=== PATIENT | female | born 1950 | race Caucasian/White ===

== ENCOUNTER → 2016-06-03 | Day surgery (SDC) | payer BC | LOC: RAD 13:27 | PROVIDERS: ATTEND Physician Assistant | PROC: BP09ZZZ Plain Radiography of Left Shoulder (ICD-10-PCS; principal; 2016-06-03) | DX: M25.512 Pain in left shoulder (principal) | CPT/HCPCS: 73222; 73040; 77002; A9576 ==

== ENCOUNTER 2016-07-15 07:51 | Day surgery (SDC) | payer BC ==
[~2016-07-15 07:51] MED LIST: CEFAZOLIN 1 GM/D5W RTU 1 GM/50 ML RTUPB IV PRN; CEFAZOLIN SODIUM 1 GM in DEXTROSE 5%-WATER 50 ML IV PRN; RINGERS SOLUTION,LACTATED 1,000 ML IV PRN
[2016-07-15] MEDS ORDERED: LIDOCAINE 2% INJ (20 MG/ML) 20 ML MDV ONE (08:00)
[2016-07-15] MEDS ORDERED: BUPIVACAINE HCL 0.5 % INJ/PF 30 ML SDV ONE (08:00)
[2016-07-15] MEDS ORDERED: FENTANYL CITRATE INJ/PF 100 MCG/2 ML AMPUL ONE (08:42)
[2016-07-15] MEDS ORDERED: LIDOCAINE 2% INJ-PF (20 MG/ML) 10 ML AMPUL ONE (08:42)
[2016-07-15] MEDS ORDERED: MIDAZOLAM 2 MG/2 ML INJ ONE (08:42)
[2016-07-15] MEDS ORDERED: PROPOFOL INJ 200 MG/20 ML VIAL IV ONE (08:43)
[2016-07-15] MEDS ORDERED: DIPHENHYDRAMINE HCL 50 MG/ML VIAL ONE (08:51)
--- NOTE | 2016-07-15 11:19 | [facility] OPERATIVE REPORT E ---
[facility] Operative Report NAME: ANH FLANAGAN AGE: 66Y DATE OF SURGERY: 07/15/2016 ROOM: PREOPERATIVE DIAGNOSIS: HALLUX ABDUCTOVALGUS DEFORMITY RIGHT FOOT. POSTOPERATIVE DIAGNOSIS: HALLUX ABDUCTOVALGUS DEFORMITY RIGHT FOOT. OPERATION: Darrell osteotomy, first metatarsal head, right foot. Capsulorrhaphy first metatarsophalangeal joint, right foot. SURGEON: SIMEON ALLEN D.P.M. INTRAOPERATIVE FINDINGS: Intraoperative findings indicated severe hypertrophy of the medial eminence of the head of the first metatarsal. There were slight degenerative changes noticed in the joint. The articular facet of the head of the first metatarsal and the base of the proximal phalanx were relatively within normal limits. Intraoperative findings were confirmed clinically and radiographically. PROCEDURE: With the patient lying in the dorsal recumbent position, the right foot and leg were prepped and draped in the usual standard sterile orthopedic manner after the local anesthesia was administered which was a total ankle block. After the anesthetic effect was accomplished, the right leg was elevated for approximately 2 minutes' of time and the right ankle pneumatic tourniquet was inflated up to 250 mmHg after the blood was exsanguinated from the right foot. The right leg was brought to the level of the table. Attention was directed right over the first metatarsophalangeal joint. A curvilinear incision was placed right over the joint. The initial incision was deepened. The superficial and deep subcutaneous tissues were dissected via blunt and sharp dissection. This dissection was carried until the capsular structures were brought into the surgical field. By this time, all bleeders were ligated and all vital structures were identified and protected from surgical trauma. Next, the L inverted capsulotomy was performed right over the joint and the long arm of the capsulotomy was medial and adjacent to extensor hallucis longus tendon and the shorter arm ran right over the joint in a medial inferior direction. Capsular and periosteal structures were dissected of bone and the head of the first metatarsal was brought into the surgical field. The hypertrophic portion of the medial eminence of the head of the first metatarsal was resected and the head was remodeled to a more normal anatomical configuration. At this point, the osteotomy was mapped on the bone and was performed in the sagittal plan. This was a gqagdeg-giy-kytahdg osteotomy, it was a chevron type of osteotomy with the apical portion facing the joint and the arms of the chevron being angulated about 45 degrees to the long axis of the first metatarsal. After the osteotomy was completed, the head was shifted lateral brito and compacted from the distal shaft and with this new anatomical alignment of the first metatarsal head, the osteotomy was externally fixated with 0.062 K-wire. The direction of the wire was from medial proximal to lateral distal direction. The wire crossed the osteotomy and impacted it. Precautions were taken for the K-wire not to be protruding into the joint. The evaluation of the osteotomy was performed and the positioning of the K-wire was very satisfactory and this was documented via intraoperative x-rays. At this point, the protruding wedge of bone over the medial distal aspect of the first metatarsal was resected. The ankle pneumatic tourniquet was deflated and circulation to the right foot returned to normal immediately as the normal digital color and temperature became apparent. The surgical site was irrigated with copious amounts of sterile saline solution. The capsulorrhaphy was performed next to remove the redundant portion of capsule created after the correction of the deformity. The subcutaneous tissues from deep to superficial were closed with 3-0 Vicryl and skin edges were repositioned and closed with 4-0 nylon using continuous interlocked stitch. A Betadine compression dressing was applied around the right foot, followed with an Travis bandage and a surgical shoe. This patient tolerated the procedures well and left the operating room with stable vital signs and in good condition. The patient was taken to the recovery room alert, conscious and oriented. There are no permanent disabilities anticipated at this time. DICTATING PHYSICIAN: SIMEON ALLEN D.P.M. [id number] PHY#: [id number] ID: [id number] JOB#: [id number] ACCT: [id number] cc:SIMEON ALLEN D.P.M. > FERN
== END 2016-07-15 11:47 | disposition home or self-care (01) ==
LOC: SC 07:51
PROVIDERS: ATTEND Podiatrist Foot & Ankle Surgery
PROC: 0SQM0ZZ Repair Right Metatarsal-Phalangeal Joint, Open Approach (ICD-10-PCS; 2016-07-15)
PROC: 0QBN0ZZ Excision of Right Metatarsal, Open Approach (ICD-10-PCS; principal; 2016-07-15 08:45)
DX: M20.11 Hallux valgus (acquired), right foot (principal); M06.9 Rheumatoid arthritis, unspecified; F32.9 Major depressive disorder, single episode, unspecified; E11.9 Type 2 diabetes mellitus without complications; I10 Essential (primary) hypertension; E66.9 Obesity, unspecified; Z79.84 Long term (current) use of oral hypoglycemic drugs; Z79.82 Long term (current) use of aspirin; Z79.899 Other long term (current) drug therapy
CPT/HCPCS: 28296; 28899; 82962; 73620; C1713; J2250; J3490 ×2; J0690; J1200; J3010; J2704; 01480

== ENCOUNTER 2016-08-18 08:11 | Day surgery (SDC) | payer BC ==
[~2016-08-18 08:11] MED LIST changes: +BUPIVACAINE HCL 0.75% INJ/PF (7.5 MG/1 ML) 10 ML SDV OD PRN; -CEFAZOLIN 1 GM/D5W RTU 1 GM/50 ML RTUPB IV PRN; -CEFAZOLIN SODIUM 1 GM in DEXTROSE 5%-WATER 50 ML IV PRN; +KETOROLAC TROMETHAMINE 0.45% 4 DROP/0.4 ML DROPERETTE OD PRN; +LIDOCAINE 4% INJ/PF (40 MG/ML) 5 ML AMPUL OD PRN; +MIDAZOLAM 2 MG/2 ML INJ ONE; -RINGERS SOLUTION,LACTATED 1,000 ML IV PRN
[2016-08-18] MEDS: TROPICAMIDE 1% OPH SOLN 3 ML OD PRN ×3 (09:05→09:25)
[2016-08-18] MEDS: CYCLOPENTOLATE 0.2%/PHENYLEPHRINE 1% OPH SOLN 2 ML OD PRN ×3 (09:05→09:25)
[2016-08-18] MEDS: BESIFLOXACIN HCL 0.6% OPH SUSP 5 ML BOTTLE OD PRN ×2 (09:05→09:15)
[2016-08-18] MEDS: TETRACAINE HCL 0.5% OPH SOLN 0.6 ML DROPERETTE OD PRN ×2 (09:06→09:25)
[2016-08-18] MEDS ORDERED: CHONDR SU A NA/HYALUR INTRAOC KIT (SURGICARE) ONE (09:10)
[2016-08-18] MEDS ORDERED: EPINEPHRINE INJ/PF 1 MG/1 ML AMPULE ONE (09:10)
[2016-08-18] MEDS ORDERED: MIDAZOLAM 2 MG/2 ML INJ ONE (09:52)
--- NOTE | 2016-08-18 10:38 | [facility] OPERATIVE REPORT E ---
[facility] Operative Report NAME: ANH FLANAGAN AGE: 66Y DATE OF SURGERY: 08/18/2016 ROOM: PREOPERATIVE DIAGNOSIS: Cataract, right eye. POSTOPERATIVE DIAGNOSIS: Cataract, right eye. PROCEDURE PERFORMED: Phacoemulsification with posterior chamber intraocular lens, right eye. SURGEON: Ronit Costello MD ANESTHESIA: Topical with MAC. INDICATIONS FOR SURGERY: Difficulty driving at night with glare. Best corrected visual acuity 20/60. PROCEDURE: The patient was brought to the operating room and placed on the operative table. Following tetracaine drops, topical anesthesia was administered. This consisted of instrument wipe pledgets soaked in a solution of 4% Xylocaine mixed with 0.75% Marcaine in a 1:2 ratio. A 2 x 1 cm pledget was placed in the superior fornix. A 1 x 1 cm pledget was placed in the inferior fornix. The eye was patched shut for 5 minutes. The patch was removed. The eye was sterilely prepped and draped in the usual manner. Lid speculum was placed in the eye. The pledgets were removed. 4-0 black silk sutures were placed around the superior and the inferior rectus muscles to be used as traction. A conjunctival peritomy was made at the 10 o'clock position. Hemostasis was obtained with bipolar cautery. A posterior limbal groove was created using a crescent knife and dissected anteriorly towards the cornea. A sharp point blade was used to create a paracentesis site at the 2 o'clock position. A 2.4 mm keratome was used to enter the anterior chamber through the groove. Viscoelastic was injected into the anterior chamber. An anterior capsulotomy was performed using Utrata forceps in a capsulorrhexis fashion. Hydrodissection and hydrodelineation were performed. Phacoemulsification was performed in avhqid-uoa-atrczde technique. Total phaco time 32 seconds. Following this, the I/A unit was used to remove residual cortex. Viscoelastic was injected into the capsular bag. Intraocular lens model SN60WF, 21.5 diopters, serial number [id number] was placed in the capsular bag. The I/A unit was used to remove residual viscoelastic. The wound was seen to be watertight under high and low pressure, and no sutures were placed. The intraocular lens was well centered. The pressure was adjusted in the eye to normal pressure. The 4-0 black silk sutures and lid speculum were removed. The eye was shielded after Besivance drops were placed. The patient tolerated the procedure well and was sent to the recovery room in good condition. DICTATING PHYSICIAN: RONIT COSTELLO M.D. [id number] PHY#: [id number] ID: [id number] JOB#: [id number] ACCT: [id number] cc:RONIT COSTELLO M.D. >
--- NOTE | 2016-08-18 10:39 | [facility] DISCHARGE SUMMARY E ---
[facility] Discharge Summary NAME: ANH FLANAGAN AGE: 66Y ADMITTED: 08/18/2016 DISCHARGED: 08/18/2016 PREOPERATIVE DIAGNOSIS: Cataract, right eye. POSTOPERATIVE DIAGNOSIS: Cataract, right eye. HOSPITAL COURSE: The patient is a 66-year-old lady who underwent uneventful cataract extraction with intraocular lens implant, right eye, on 08/18/2016. She will be discharged to home. She was instructed to resume preoperative medications, take Tylenol as needed for discomfort, to keep her eye shielded, to use Besivance, Durezol, and Ilevro at 3 p.m. and 8 p.m., and to followup in my office in 1 day. DICTATING PHYSICIAN: TRUE COSTELLO M.D. [id number] PHY#: [id number] ID: [id number] JOB#: [id number] ACCT: [id number] cc:TRUE COSTELLO M.D. >
== END 2016-08-18 10:58 | disposition home or self-care (01) ==
LOC: SC 08:11
PROVIDERS: ATTEND Ophthalmology
PROC: 08RJ3JZ Replacement of Right Lens with Synthetic Substitute, Percutaneous Approach (ICD-10-PCS; principal; 2016-08-18 09:30)
DX: H25.813 Combined forms of age-related cataract, bilateral (principal); E11.9 Type 2 diabetes mellitus without complications; I10 Essential (primary) hypertension; K21.9 Gastro-esophageal reflux disease without esophagitis; I49.9 Cardiac arrhythmia, unspecified; Z79.84 Long term (current) use of oral hypoglycemic drugs; Z79.899 Other long term (current) drug therapy; Z88.2 Allergy status to sulfonamides; Z79.82 Long term (current) use of aspirin; Z86.14 Personal history of Methicillin resistant Staphylococcus aureus infection
CPT/HCPCS: 66984; 82962; V2632; J2250; J3490 ×3; J0171; 142

== ENCOUNTER 2016-09-08 08:50 | Day surgery (SDC) | payer BC ==
[~2016-09-08 08:50] MED LIST changes: -BUPIVACAINE HCL 0.75% INJ/PF (7.5 MG/1 ML) 10 ML SDV OD PRN; +BUPIVACAINE HCL 0.75% INJ/PF (7.5 MG/1 ML) 10 ML SDV OS PRN; -KETOROLAC TROMETHAMINE 0.45% 4 DROP/0.4 ML DROPERETTE OD PRN; +KETOROLAC TROMETHAMINE 0.45% 4 DROP/0.4 ML DROPERETTE OS PRN; -LIDOCAINE 4% INJ/PF (40 MG/ML) 5 ML AMPUL OD PRN; +LIDOCAINE 4% INJ/PF (40 MG/ML) 5 ML AMPUL OS PRN
[2016-09-08] MEDS: TROPICAMIDE 1% OPH SOLN 3 ML OS PRN ×3 (09:20→09:41)
[2016-09-08] MEDS: CYCLOPENTOLATE 0.2%/PHENYLEPHRINE 1% OPH SOLN 2 ML OS PRN ×3 (09:20→09:41)
[2016-09-08] MEDS: BESIFLOXACIN HCL 0.6% OPH SUSP 5 ML BOTTLE OS PRN ×4 (09:21→10:31)
[2016-09-08] MEDS: TETRACAINE HCL 0.5% OPH SOLN 0.6 ML DROPERETTE OS PRN ×2 (09:22→09:50)
[2016-09-08] MEDS ORDERED: CHONDR SU A NA/HYALUR INTRAOC KIT (SURGICARE) ONE (09:40)
[2016-09-08] MEDS ORDERED: EPINEPHRINE INJ/PF 1 MG/1 ML AMPULE ONE (09:40)
--- NOTE | 2016-09-08 10:50 | [facility] OPERATIVE REPORT E ---
[facility] Operative Report NAME: ANH FLANAGAN AGE: 66Y DATE OF SURGERY: 09/08/2016 ROOM: [facility] [place] Operative Report PREOPERATIVE DIAGNOSIS: CATARACT, LEFT EYE. POSTOPERATIVE DIAGNOSIS: CATARACT, LEFT EYE. PROCEDURE PERFORMED: PHACOEMULSIFICATION WITH POSTERIOR CHAMBER INTRAOCULAR LENS, LEFT EYE. SURGEON: TRUE COSTELLO MD ANESTHESIA: TOPICAL WITH MAC. INDICATIONS FOR SURGERY: Difficulty reading small print. Best corrected visual acuity 20/40. PROCEDURE: The patient was brought to the Operating Room and placed on the operative table. Following tetracaine drops, topical anesthesia was administered. This consisted of instrument wipe pledgets soaked in a solution of 4% Xylocaine mixed with 0.75% Marcaine in a 1:2 ratio. A 2 x 1 cm pledget was placed in the superior fornix. A 1 x 1 cm pledget was placed in the inferior fornix. The eye was patched shut for 5 minutes. The patch was removed. The eye was sterilely prepped and draped in the usual manner. Lid speculum was placed in the eye. The pledgets were removed. 4-0 black silk sutures were placed around the superior and the inferior rectus muscles to be used as traction. A conjunctival peritomy was made at the 10 o'clock position. Hemostasis was obtained with bipolar cautery. A posterior limbal groove was created using a crescent knife and dissected anteriorly towards the cornea. A sharp point blade was used to create a paracentesis site at the 2 o'clock position. A 2.4 mm keratome was used to enter the anterior chamber through the groove. Viscoelastic was injected into the anterior chamber. An anterior capsulotomy was performed using Utrata forceps in a capsulorrhexis fashion. Hydrodissection and hydrodelineation were performed. Phacoemulsification was performed in dotdtn-jll-kazgrnr technique. A total of 44 seconds phaco time was used. Following this, the I/A unit was used to remove residual cortex. Viscoelastic was injected into the capsular bag. Intraocular lens model SN60WF, 21.5 diopters, serial number [id number] was placed in the capsular bag. The I/A unit was used to remove residual viscoelastic. The wound was seen to be watertight under high and low pressure, and no sutures were placed. The intraocular lens was well centered. The pressure was adjusted in the eye to normal pressure. The 4-0 black silk sutures and lid speculum were removed. The eye was shielded after Besivance drops were placed. The patient tolerated the procedure well and was sent to the Recovery Room in good condition. DICTATING PHYSICIAN: TRUE COSTELLO M.D. DICTATING PHYSICIAN: TRUE COSTELLO M.D. [id number] PHY#: [id number] ID: [id number] JOB#: [id number] ACCT: [id number] cc:TRUE COSTELLO M.D. >
--- NOTE | 2016-09-08 10:51 | [facility] DISCHARGE SUMMARY E ---
[facility] Discharge Summary NAME: ANH FLANAGAN AGE: 66Y ADMITTED: 09/08/2016 DISCHARGED: 09/08/2016 FINAL DIAGNOSIS: Cataract, left eye. HOSPITAL COURSE: The patient is a 66-year-old lady who underwent uneventful cataract extraction with intraocular lens implant, left eye, on 09/08/16. DISPOSITION: The patient was discharged to home. DISCHARGE INSTRUCTIONS: She is instructed to resume preoperative medications, take Tylenol as needed for discomfort, to keep her eye shielded, to use Besivance, Durezol, and Ilevro at 3 p.m. and 8 p.m., and to follow up in my office in 1 day. DICTATING PHYSICIAN: TRUE COSTELOL M.D. [id number] PHY#: [id number] ID: [id number] JOB#: [id number] ACCT: [id number] cc:TRUE COSTELLO M.D. >
== END 2016-09-08 11:03 | disposition home or self-care (01) ==
LOC: SC 08:50
PROVIDERS: ATTEND Ophthalmology
PROC: 08RK3JZ Replacement of Left Lens with Synthetic Substitute, Percutaneous Approach (ICD-10-PCS; principal; 2016-09-08 10:00)
DX: H25.812 Combined forms of age-related cataract, left eye (principal); Z96.1 Presence of intraocular lens; I10 Essential (primary) hypertension; M19.90 Unspecified osteoarthritis, unspecified site; D64.9 Anemia, unspecified; K21.9 Gastro-esophageal reflux disease without esophagitis; I49.9 Cardiac arrhythmia, unspecified; Z79.82 Long term (current) use of aspirin; Z79.899 Other long term (current) drug therapy; Z88.2 Allergy status to sulfonamides; Z88.1 Allergy status to other antibiotic agents; E11.9 Type 2 diabetes mellitus without complications; Z79.84 Long term (current) use of oral hypoglycemic drugs
CPT/HCPCS: 66984; 82962; V2632; J2250; J3490 ×3; J0171

== ENCOUNTER → 2016-09-30 | Outpatient (CLI) | payer BC ==
[2016-09-30 11:55] LABS: HEMATOCRIT 37.6 % (36.0-47.0); HEMOGLOBIN 12.4 g/dL (12.0-15.5); HGB HCT DIFFERENCE -0.4; MEAN CORPUSCULAR HEMOGLOBIN 30.8 pg (27.0-33.4); MEAN CORPUSCULAR HGB CONC 33.1 g/dL (32.0-36.0); MEAN CORPUSCULAR VOLUME 93 fl (80-97); RED BLOOD COUNT 4.04 10^6/uL (3.72-5.28); RED CELL DISTRIBUTION WIDTH 13.6 % (11.5-14.0); WHITE BLOOD COUNT 7.5 10^3/uL (4.0-10.5)
[2016-09-30 12:14] LABS: ALANINE AMINOTRANSFERASE 38 U/L (9-52); ALBUMIN 4.1 g/dL (3.5-5.0); ALKALINE PHOSPHATASE 55 U/L (38-126); ANION GAP 15 (5-19); ASPARTATE AMINO TRANSFERASE 30 U/L (14-36); BILIRUBIN,DIRECT 0.3 mg/dL (0.0-0.4); BILIRUBIN,TOTAL 0.4 mg/dL (0.2-1.3); BLOOD UREA NITROGEN 16 mg/dL (7-20); CARBON DIOXIDE 27 mmol/L (22-30); CHLORIDE 99 mmol/L (98-107); CHOLESTEROL 103.45 mg/dL (0-200); Direct HDL 40 mg/dL (>40); GLUCOSE 88 mg/dL (75-110); MAGNESIUM 1.6 mg/dL (1.6-2.3); POTASSIUM 4.7 mmol/L (3.6-5.0); SODIUM 141.1 mmol/L (137-145); TRIGLYCERIDES 152 mg/dL (<150)
[2016-09-30 12:26] LABS: DIRECT LDL 44 mg/dL (<100)
[2016-09-30 12:30] LABS: VLDL CHOLESTEROL 30.4 mg/dL (10-31)
== END ==
LOC: OD 11:03
PROVIDERS: ATTEND Internal Medicine Cardiovascular Disease
DX: E78.2 Mixed hyperlipidemia (principal); D64.9 Anemia, unspecified; Z79.899 Other long term (current) drug therapy
CPT/HCPCS: 36415; 80048; 80061; 80076; 83735; 85027

== ENCOUNTER → 2017-07-20 | Outpatient (CLI) | payer MEDICARE, OTHER ==
--- NOTE | 2017-07-20 14:05 | RADIOLOGY REPORT (SQ) ---
EXAM DESCRIPTION: CT ABD/PELVIS WITH IV ORAL COMPLETED DATE/TIME: 07/20/2017 1:34 pm REASON FOR STUDY: R10.33 PERIUMBILICAL PAIN R10.33 PERIUMBILICAL PAIN COMPARISON: None. TECHNIQUE: CT scan of the abdomen and pelvis performed with intravenous and oral contrast using sasha nabeel scanning technique with dynamic intravenous contrast injection. Images reviewed with lung, soft t issue, and bone windows. Reconstructed coronal and sagittal MPR images reviewed. Delayed images for e valuation of the urinary system also acquired. All images stored on PACS. All CT scanners at this facility use dose modulation, iterative reconstruction, and/or weight based d osing when appropriate to reduce radiation dose to as low as reasonably achievable (ALARA). [facility]: Dose Right [facility]: CareDose [facility]: Dose Right [facility]: Teradose 4D [facility]: [employer] CONTRAST TYPE AND DOSE: contrast/concentration: Isovue 370.00 mg/ml; Total Contrast Delivered: 91.0 ml; Total Saline Delivered: 70.0 ml RENAL FUNCTION: Creatinine 1.0. RADIATION DOSE: CT Rad equipment meets quality standard of care and radiation dose reduction techniq ues were employed. CTDIvol: 14.6 - 16.5 mGy. DLP: 1521 mGy-cm. . LIMITATIONS: None. FINDINGS: LOWER CHEST: No significant findings. No nodules or infiltrates. LIVER: Normal size. Diffuse fatty infiltration. No masses. No dilated ducts. SPLEEN: Normal size. No focal lesions. PANCREAS: No masses. No significant calcifications. No adjacent inflammation or peripancreatic fluid collections. Pancreatic duct not dilated. GALLBLADDER: Surgically absent. ADRENAL GLANDS: No significant masses or asymmetry. RIGHT KIDNEY AND URETER: No solid masses. No significant calcifications. No hydronephrosis or hyd roureter. LEFT KIDNEY AND URETER: No solid masses. No significant calcifications. No hydronephrosis or hydr oureter. AORTA AND VESSELS: No aneurysm. No dissection. Renal arteries, SMA, celiac without stenosis. RETROPERITONEUM: No retroperitoneal adenopathy, hemorrhage or masses. BOWEL AND PERITONEAL CAVITY: No obstruction. No visualized masses. No free fluid. No inflammatory ch anges or thickening of bowel wall. APPENDIX: Surgically absent. PELVIS: No significant masses. Normal bladder. No free fluid. ABDOMINAL WALL: No masses. No hernias. BONES: No significant or acute findings. OTHER: There is an irregular fluid collection extending superiorly from the right hip joint. This cu rves around the acetabulum and iliac bone to the anterior aspect of the iliacus muscle. IMPRESSION: 1. IRREGULAR FLUID COLLECTION EXTENDING SUPERIORLY FROM THE RIGHT HIP JOINT. THIS LIKELY IS RELATED TO A GANGLION WHICH HAS DISSECTED THROUGH THE SOFT TISSUES. 2. FATTY INFILTRATION OF THE LIVER. 3. NO OTHER SIGNIFICANT OR ACUTE FINDINGS IN THE ABDOMEN OR PELVIS. SPECIFICALLY NO ABDOMINAL WALL H ERNIA OR OTHER SIGNIFICANT FINDINGS IN THE ANTERIOR ABDOMEN. TECHNICAL DOCUMENTATION: JOB ID: [id number] Quality ID # [id number]: Final reports with documentation of one or more dose reduction techniques (e.g., Au tomated exposure control, adjustment of the mA and/or kV according to patient size, use of iterative reconstruction technique) 2010 [employer] All Rights Reserved
== END ==
LOC: RAD 15:29
PROVIDERS: ATTEND Physician Assistant Surgical
DX: R10.33 Periumbilical pain (principal)
CPT/HCPCS: 74177; 82565

== ENCOUNTER → 2018-01-02 | Outpatient (CLI) | payer MEDICARE, OTHER ==
[2018-01-02 10:00] LABS: ALANINE AMINOTRANSFERASE 26 U/L (9-52); ALKALINE PHOSPHATASE 65 U/L (38-126); ANION GAP 14 (5-19); ASPARTATE AMINO TRANSFERASE 20 U/L (14-36); BILIRUBIN,DIRECT 0.1 mg/dL (0.0-0.4); BILIRUBIN,TOTAL 0.1 mg/dL (0.2-1.3); BLOOD UREA NITROGEN 15 mg/dL (7-20); CALCIUM 9.6 mg/dL (8.4-10.2); CARBON DIOXIDE 26 mmol/L (22-30); CHLORIDE 104 mmol/L (98-107); CHOLESTEROL 139.67 mg/dL (0-200); GLUCOSE 108 mg/dL (75-110); SODIUM 143.9 mmol/L (137-145); TOTAL PROTEIN 6.8 g/dL (6.3-8.2); TRIGLYCERIDES 296 mg/dL (<150)
[2018-01-02 10:10] LABS: DIRECT LDL 69 mg/dL (<100)
[2018-01-02 10:13] LABS: VLDL CHOLESTEROL 59.2 mg/dL (10-31)
== END ==
LOC: OD 08:32
PROVIDERS: ATTEND Internal Medicine Cardiovascular Disease
DX: I10 Essential (primary) hypertension (principal); E78.2 Mixed hyperlipidemia; Z79.899 Other long term (current) drug therapy
CPT/HCPCS: 36415; 80048; 80061; 80076

== ENCOUNTER → 2018-03-16 | Outpatient (CLI) | payer MEDICARE, OTHER ==
--- NOTE | 2018-03-16 11:30 | WOMENS IMAGING REPORT ---
EXAM DESCRIPTION: BILAT SCREENING MAMMO W/CAD COMPLETED DATE/TIME: 03/16/2018 10:51 am REASON FOR STUDY: SCREENING MAMMO Z12.31 ENCNTR SCREEN MAMMOGRAM FOR MALIGNANT NEOPLASM OF ESEQUIEL COMPARISON: 03/09/2016. TECHNIQUE: Standard craniocaudal and mediolateral oblique views of each breast recorded using digita l acquisition. LIMITATIONS: None. FINDINGS: No masses, calcifications or architectural distortion. No areas of suspicion. Read with the assistance of CAD. .[facility] - R2 C[employer] Version 1.3 .[facility] Imaging - R2 Cenova Version 1.3 .[facility] - R2 Cenova Version 2.4 .[facility] R2 Cenova Version 2.4 .[facility] - R2 Emergency Physician Version 9.2 IMPRESSION: NORMAL MAMMOGRAM. BIRADS 1. BREAST DENSITY: b. There are scattered areas of fibroglandular density. BIRAD: 1 NEGATIVE RECOMMENDATION: ROUTINE SCREENING COMMENT: The patient has been notified of the results by letter per SA requirements. Additional no tification policies are in place for contacting patient with suspicious or incomplete findings. Quality ID #225: The [employer] recommends an annual screening mammogram for women aged 40 years or over. This facility utilizes a reminder system to ensure that all patients receive reminder letters, and/or direct phone calls for appointments. This includes reminders for routine scr eening mammograms, diagnostic mammograms, or other Breast Imaging Interventions when appropriate. Th is patient will be placed in the appropriate reminder system. The [employer] (ACR) has developed recommendations for screening MRI of the breast s in certain patient populations, to be used in conjunction with mammography. Breast MRI surveillanc e may be appropriate for women with more than 20% lifetime risk of developing breast cancer as deter mined by genetic testing, significant family history of the disease, or history of mantle radiation f or Hodgkins Disease. ACR Practice Guidelines 2008. TECHNICAL DOCUMENTATION: FINDING NUMBER: (1) ASSESSMENT: (1) JOB ID: [id number] [employer]- All Rights Reserved Reading location - IP/workstation name: [facility]
== END ==
LOC: WI 10:29
PROVIDERS: ATTEND Nurse Practitioner Family
DX: Z12.31 Encounter for screening mammogram for malignant neoplasm of breast (principal)
CPT/HCPCS: 77067

== ENCOUNTER → 2018-04-11 | Outpatient (CLI) | payer MEDICARE, OTHER ==
--- NOTE | 2018-04-11 15:49 | RADIOLOGY REPORT (SQ) ---
EXAM DESCRIPTION: CHEST PA/LATERAL COMPLETED DATE/TIME: 04/11/2018 1:31 pm REASON FOR STUDY: ACUTE BRONCHITIS DUE TO OTHER SPECIFIED ORGANISMS COMPARISON: None. EXAM PARAMETERS: NUMBER OF VIEWS: two views TECHNIQUE: Digital Frontal and Lateral radiographic views of the chest acquired. RADIATION DOSE: NA LIMITATIONS: none FINDINGS: LUNGS AND PLEURA: No opacities, masses or pneumothorax. No pleural effusion. MEDIASTINUM AND HILAR STRUCTURES: No masses or contour abnormalities. HEART AND VASCULAR STRUCTURES: Heart normal size. No evidence for failure. BONES: No acute findings. HARDWARE: None in the chest. OTHER: No other significant finding. IMPRESSION: NO SIGNIFICANT RADIOGRAPHIC FINDING IN THE CHEST. TECHNICAL DOCUMENTATION: JOB ID: [id number] [employer]- All Rights Reserved Reading location - IP/workstation name: [email or web address]
== END ==
LOC: OD 13:20
PROVIDERS: ATTEND Nurse Practitioner Family
DX: J20.8 Acute bronchitis due to other specified organisms (principal)
CPT/HCPCS: 71046

== ENCOUNTER → 2018-07-04 | Outpatient (CLI) | payer MEDICARE, OTHER ==
[2018-07-04 11:15] LABS: ALANINE AMINOTRANSFERASE 33 U/L (9-52); ALBUMIN 4.5 g/dL (3.5-5.0); ALKALINE PHOSPHATASE 62 U/L (38-126); ANION GAP 11 (5-19); ASPARTATE AMINO TRANSFERASE 23 U/L (14-36); BILIRUBIN,DIRECT 0.1 mg/dL (0.0-0.4); BILIRUBIN,TOTAL 0.3 mg/dL (0.2-1.3); BLOOD UREA NITROGEN 16 mg/dL (7-20); CALCIUM 9.7 mg/dL (8.4-10.2); CARBON DIOXIDE 27 mmol/L (22-30); CHLORIDE 103 mmol/L (98-107); CHOLESTEROL 132.72 mg/dL (0-200); GLUCOSE 93 mg/dL (75-110); SODIUM 140.9 mmol/L (137-145); TOTAL PROTEIN 7.1 g/dL (6.3-8.2); TRIGLYCERIDES 217 mg/dL (<150)
[2018-07-04 11:26] LABS: DIRECT LDL 76 mg/dL (<100)
[2018-07-04 11:29] LABS: VLDL CHOLESTEROL 43.4 mg/dL (10-31)
== END ==
LOC: OD 10:14
PROVIDERS: ATTEND Physician Assistant
DX: I10 Essential (primary) hypertension (principal); E78.2 Mixed hyperlipidemia; Z79.899 Other long term (current) drug therapy
CPT/HCPCS: 36415; 80048; 80061; 80076

== ENCOUNTER → 2018-08-29 | Outpatient (CLI) | payer MEDICARE, OTHER ==
[2018-08-29 10:02] LABS: ALANINE AMINOTRANSFERASE 24 U/L (9-52); ALBUMIN 4.2 g/dL (3.5-5.0); ALKALINE PHOSPHATASE 77 U/L (38-126); ASPARTATE AMINO TRANSFERASE 23 U/L (14-36); BILIRUBIN,DIRECT 0.2 mg/dL (0.0-0.4); BILIRUBIN,TOTAL 0.4 mg/dL (0.2-1.3); CHOLESTEROL 125.52 mg/dL (0-200); TOTAL PROTEIN 6.9 g/dL (6.3-8.2); TRIGLYCERIDES 143 mg/dL (<150)
[2018-08-29 10:14] LABS: DIRECT LDL 72 mg/dL (<100)
== END ==
LOC: LAB 08:53
PROVIDERS: ATTEND Physician Assistant
DX: E78.2 Mixed hyperlipidemia (principal); Z79.899 Other long term (current) drug therapy
CPT/HCPCS: 36415; 80061; 80076

== ENCOUNTER → 2018-11-27 | Outpatient (CLI) | payer MEDICARE, OTHER ==
--- NOTE | 2018-11-27 10:18 | RADIOLOGY REPORT (SQ) ---
EXAM DESCRIPTION: MRI LUMBAR SPINE WITHOUT COMPLETED DATE/TIME: 11/27/2018 9:41 am REASON FOR STUDY: (M54.16)RADICULOPATHY, LUMBAR REGION M54.16 RADICULOPATHY, LUMBAR REGION COMPARISON: None. TECHNIQUE: Sagittal and Axial imaging includes T1, T2, STIR and gradient echo sequences. Coronal T2/ HASTE imaging. LIMITATIONS: None. FINDINGS: VISUALIZED UPPER ABDOMEN: Limited evaluation. No acute or suspicious findings suggested. SEGMENTATION: No transitional anatomy. The lowest well-developed disc space is labeled L5-S1. ALIGNMENT: Anatomic. VERTEBRAE: Intact. BONE MARROW: There is fatty reactive vertebral body endplate change anteriorly at L2-3 DISC SIGNAL: Diffuse decreased T2 weighted intervertebral disc signal. POSTERIOR ELEMENTS: Generally intact. No pars defect evident. HARDWARE: None in the spine. CORD AND CONUS: Normal in size and signal intensity. Conus at the T12-L1 level. SOFT TISSUES: No aortic aneurysm seen. No bulky retroperitoneal adenopathy or mass. No paraspinal mas s or fluid. T10-11: No central or foraminal stenosis. T11-12: No central or foraminal stenosis. T12-L1: No central or foraminal stenosis. L1-L2: Mild bilateral facet hypertrophy. No central or foraminal stenosis. L2-L3: Moderate diffuse posterior disc bulging, mild bilateral facet and ligament hypertrophy. Borde rline central canal narrowing, best shown on axial T2 image 11. There is mild bilateral inferior for aminal narrowing at L2-3 without significant central or foraminal encroachment. Fluid in the bilater al facet joints is present. L3-L4: Mild diffuse posterior disc bulging, moderate bilateral facet and ligament hypertrophy. Borde rline central canal narrowing best shown on axial T2 image 17. There is mild bilateral inferior fora eulalia narrowing without exiting L3 nerve root impingement. L4-L5: High-grade central canal stenosis results from broad diffuse posterior disc bulge and bony spu rring and bulky bilateral facet and ligament hypertrophy. Effacement of the CSF around the lumbar ne rve roots with flattening of the thecal sac into a triangular shape best shown on axial T2 image 23. Small amount of fluid in the left L4-5 facet joint. There is mild right and slab-ca-tyczincf left f oraminal narrowing without exit L4 nerve root impingement. L5-S1: Broad diffuse posterior disc bulge, moderate bilateral facet and ligament hypertrophy. Mild c entral canal narrowing. Moderate bilateral foraminal narrowing without definite exiting L5 nerve tasneem t impingement. There is fluid in the bilateral L5-S1 facet joints. SACRUM: Visualized upper sacrum intact. OTHER: No other significant findings. IMPRESSION: Significant central canal stenosis at L4-5 Degenerative disc changes and facet arthropathy at L2-3 and L5-S1. TECHNICAL DOCUMENTATION: JOB ID: [id number] [employer]- All Rights Reserved Reading location - IP/workstation name: [email or web address]
== END ==
LOC: RAD 09:11
PROVIDERS: ATTEND Physician Assistant
DX: M51.16 Intervertebral disc disorders with radiculopathy, lumbar region (principal); M48.061 Spinal stenosis, lumbar region without neurogenic claudication
CPT/HCPCS: 72148

== ENCOUNTER → 2018-12-05 | Outpatient (CLI) | payer MEDICARE, OTHER ==
[2018-12-05 11:19] LABS: ALANINE AMINOTRANSFERASE 30 U/L (9-52); ALBUMIN 4.2 g/dL (3.5-5.0); ALKALINE PHOSPHATASE 49 U/L (38-126); ANION GAP 10 (5-19); ASPARTATE AMINO TRANSFERASE 25 U/L (14-36); BILIRUBIN,DIRECT 0.2 mg/dL (0.0-0.4); BILIRUBIN,TOTAL 0.4 mg/dL (0.2-1.3); BLOOD UREA NITROGEN 17 mg/dL (7-20); CALCIUM 9.7 mg/dL (8.4-10.2); CARBON DIOXIDE 28 mmol/L (22-30); CHLORIDE 102 mmol/L (98-107); CHOLESTEROL 122.44 mg/dL (0-200); GLUCOSE 99 mg/dL (75-110); POTASSIUM 4.6 mmol/L (3.6-5.0); SODIUM 139.8 mmol/L (137-145); TOTAL PROTEIN 7.1 g/dL (6.3-8.2); TRIGLYCERIDES 208 mg/dL (<150)
[2018-12-05 11:30] LABS: DIRECT LDL 68 mg/dL (<100)
[2018-12-05 11:37] LABS: VLDL CHOLESTEROL 41.6 mg/dL (10-31)
== END ==
LOC: LAB 10:10
PROVIDERS: ATTEND Internal Medicine Cardiovascular Disease
DX: E78.2 Mixed hyperlipidemia (principal); I10 Essential (primary) hypertension; Z79.899 Other long term (current) drug therapy
CPT/HCPCS: 36415; 80048; 80061; 80076

== ENCOUNTER → 2019-01-09 | Outpatient (CLI) | payer MEDICARE, OTHER ==
--- NOTE | 2019-01-09 14:26 | RADIOLOGY REPORT (SQ) ---
EXAM DESCRIPTION: L SPINE W/FLEX/EXT COMPLETED DATE/TIME: 01/09/2019 1:10 pm REASON FOR STUDY: M54.16 RADICULOPATHY, LUMBAR REGION M54.16 RADICULOPATHY, LUMBAR REGION COMPARISON: None. NUMBER OF VIEWS: Seven view TECHNIQUE: AP, oblique, and coned-down lateral views were obtained. Full lateral views were obtaine d in neutral, flexion, and extension. LIMITATIONS: None. FINDINGS: MINERALIZATION: Normal. SEGMENTATION: Normal. No transitional anatomy. ALIGNMENT: There is grade 1 anterolisthesis of L4 on L5. FLEXION/EXTENSION: No instability. VERTEBRAE: Maintained height. No fracture or worrisome bone lesion. DISCS: There is mild disc narrowing at L1-2 with marginal osteophytes. There is mild disc narrowing at L4-5. POSTERIOR ELEMENTS: Hypertrophic facet changes at L5-S1. HARDWARE: None in the spine. OTHER: No other significant finding. IMPRESSION: Grade 1 anterolisthesis of L4 on L5. Mild degenerative disc disease. Mild spondylosis. Facet arthropathy. No instability on flexion/extension. TECHNICAL DOCUMENTATION: JOB ID: [id number]- All Rights Reserved Reading location - IP/workstation name: [email or web address]
== END ==
LOC: RAD 12:28
PROVIDERS: ATTEND Pain Medicine Pain Medicine
DX: M51.16 Intervertebral disc disorders with radiculopathy, lumbar region (principal)
CPT/HCPCS: 72114

== ENCOUNTER → 2019-02-27 | Outpatient (CLI) | payer MEDICARE, OTHER ==
[2019-02-27 08:24] LABS: ALBUMIN 4.2 g/dL (3.5-5.0); ALKALINE PHOSPHATASE 68 U/L (38-126); ANION GAP 9 (5-19); ASPARTATE AMINO TRANSFERASE 26 U/L (14-36); BILIRUBIN,DIRECT 0.1 mg/dL (0.0-0.4); BILIRUBIN,TOTAL 0.2 mg/dL (0.2-1.3); BLOOD UREA NITROGEN 17 mg/dL (7-20); CALCIUM 9.8 mg/dL (8.4-10.2); CARBON DIOXIDE 28 mmol/L (22-30); CHLORIDE 102 mmol/L (98-107); CHOLESTEROL 126.98 mg/dL (0-200); GLUCOSE 98 mg/dL (75-110); POTASSIUM 4.5 mmol/L (3.6-5.0); TOTAL PROTEIN 7.1 g/dL (6.3-8.2); TRIGLYCERIDES 233 mg/dL (<150)
[2019-02-27 08:34] LABS: DIRECT LDL 74 mg/dL (<100)
[2019-02-27 08:35] LABS: VLDL CHOLESTEROL 46.6 mg/dL (10-31)
== END ==
LOC: LAB 07:44
PROVIDERS: ATTEND Physician Assistant
DX: E78.2 Mixed hyperlipidemia (principal); I10 Essential (primary) hypertension; Z79.899 Other long term (current) drug therapy
CPT/HCPCS: 36415; 80048; 80061; 80076

== ENCOUNTER → 2019-06-10 | Outpatient (CLI) | payer MEDICARE, OTHER ==
[2019-06-10 11:24] LABS: ALBUMIN 4.4 g/dL (3.5-5.0); ALKALINE PHOSPHATASE 61 U/L (38-126); ANION GAP 9 (5-19); ASPARTATE AMINO TRANSFERASE 28 U/L (14-36); BILIRUBIN,DIRECT 0.3 mg/dL (0.0-0.4); BILIRUBIN,TOTAL 0.3 mg/dL (0.2-1.3); BLOOD UREA NITROGEN 12 mg/dL (7-20); CALCIUM 9.8 mg/dL (8.4-10.2); CARBON DIOXIDE 31 mmol/L (22-30); CHLORIDE 103 mmol/L (98-107); CHOLESTEROL 134.68 mg/dL (0-200); GLUCOSE 107 mg/dL (75-110); POTASSIUM 4.9 mmol/L (3.6-5.0); TOTAL PROTEIN 7.5 g/dL (6.3-8.2); TRIGLYCERIDES 188 mg/dL (<150)
[2019-06-10 11:35] LABS: DIRECT LDL 80 mg/dL (<100)
[2019-06-10 11:48] LABS: VLDL CHOLESTEROL 37.6 mg/dL (10-31)
== END ==
LOC: LAB 10:35
PROVIDERS: ATTEND Physician Assistant
DX: E78.2 Mixed hyperlipidemia (principal); I10 Essential (primary) hypertension; E83.42 Hypomagnesemia; Z79.899 Other long term (current) drug therapy
CPT/HCPCS: 36415; 80048; 80061; 80076; 83735

== ENCOUNTER 2019-07-02 09:13 | Day surgery (SDC) | payer MEDICARE, OTHER ==
[2019-07-02] MEDS ORDERED: NEO/POLYMYX B SULF/DEXAMETH OPH OINTMENT 3.5 GM ONE (09:24)
[2019-07-02] MEDS ORDERED: POVIDONE-IODINE 5% OPH PREP SOLN 30 ML ONE (09:24)
[2019-07-02] MEDS ORDERED: BALANCED SALT IRRIG SOLN COMB2 15 ML BOTTLE ONE (09:25)
[2019-07-02] MEDS ORDERED: TETRACAINE HCL 0.5% OPH SOLN 4 ML ONE (09:25)
[2019-07-02] MEDS ORDERED: LIDOCAINE 2%/EPINEPHRINE INJ 20 ML VIAL ONE (09:26)
[2019-07-02] MEDS ORDERED: BUPIVACAINE HCL 0.75% INJ/PF (7.5 MG/1 ML) 10 ML SDV ONE (09:26)
[2019-07-02] MEDS ORDERED: MIDAZOLAM 2 MG/2 ML INJ ONE (10:20)
[2019-07-02] MEDS ORDERED: FENTANYL CITRATE INJ/PF 100 MCG/2 ML AMPUL ONE (10:20)
[2019-07-02] MEDS ORDERED: PROPOFOL INJ 200 MG/20 ML VIAL IV ONE ×2 (10:20→10:22)
[2019-07-02] MEDS ORDERED: LIDOCAINE 2% INJ-PF (100 MG/5 ML) SYRINGE ONE (10:21)
[2019-07-02] MEDS: TRANEXAMIC ACID INJ/PF 1,000 MG/10 ML SDV ONE ×2 (11:10→11:23)
[2019-07-02] MEDS: NORMAL SALINE INJ/PF 0.9% 10 ML SDV ONE ×2 (11:10→11:23)
[2019-07-02] MEDS: TOBRAMYCIN SULFATE/DEXAMETH OPH OINTMENT 3.5 GM ONE ×2 (11:53)
--- NOTE | 2019-07-02 13:01 | Operative Report ---
Operative Report-[facility] Operative Report: DATE OF SURGERY: 07/02/2019 PREOPERATIVE DIAGNOSIS: Bilateral upper eyelid Dermatothlasis with visual field loss POSTOPERATIVE DIAGNOSIS: Bilateral upper eyelid Dermatothlasis with visual field loss PROCEDURE PERFORMED: Bilateral upper eyelid blepharoplasty SURGEON: Ronit Parkinson MD ANESTHESIA: Local with MAC INDICATION FOR SURGERY: Difficulty with peripheral vision and eyelids fatigue by the end of the day PROCEDURE: The patient was brought to the operating room and both upper eyelids were sterilely prepped and draped in the usual manner. Tetracaine drops were placed in the eyes. Attention was directed to both upper lids where the upper lid crease was marked and 0.3 mm forceps were used to estimate the excess upper eyelid skin to be excised. This was marked in an elliptical fashion. Local anesthesia was administered. This consisted of 2% Xylocaine with epinephrine mixed with 0.75% Marcaine. Approximately 2.5 mL's of this was used to infiltrate both upper eyelids in the previous marked areas and the local anesthetic was diffuse with a Q-tip. Attention was directed to the left upper lid where the elliptical of skin was removed. Hemostasis was obtained with bipolar cautery. The orbital septum was opened and prolapse retroseptal fat was grasped with a hemostat, cut and cauterized. Trenexamic acid soaked on a pad was placed on the incision. Identical procedure was performed on the right upper lid. Wound closure was completed with 3 interrupted 6-0 silk sutures, equally spaced through both upper lids, taking a deep bite of the fascia. This was followed by a running 6-0 nylon suture. There was full closure of the lids and good hemostasis at the end of the surgery. TobraDex ointment was placed on both upper lids. Patient tolerated procedure well and sent to recovery room and in good condition.
== END 2019-07-02 13:00 | disposition home or self-care (01) ==
LOC: SC 09:13
PROVIDERS: ATTEND Ophthalmology
DX: H02.831 Dermatochalasis of right upper eyelid (principal); H02.834 Dermatochalasis of left upper eyelid; H53.453 Other localized visual field defect, bilateral; E78.00 Pure hypercholesterolemia, unspecified; E11.9 Type 2 diabetes mellitus without complications; Z85.43 Personal history of malignant neoplasm of ovary; Z85.42 Personal history of malignant neoplasm of other parts of uterus; Z88.2 Allergy status to sulfonamides; Z79.82 Long term (current) use of aspirin; Z79.899 Other long term (current) drug therapy
CPT/HCPCS: 15823; 82962; J2250; J3490 ×7; A9270; J3010; J2001; J2704

== ENCOUNTER → 2019-10-18 | Outpatient (CLI) | payer MEDICARE, OTHER ==
[2019-10-18 09:01] LABS: ALBUMIN 4.2 g/dL (3.5-5.0); ALKALINE PHOSPHATASE 65 U/L (38-126); ANION GAP 8 (5-19); ASPARTATE AMINO TRANSFERASE 23 U/L (14-36); BILIRUBIN,TOTAL 0.2 mg/dL (0.2-1.3); BLOOD UREA NITROGEN 18 mg/dL (7-20); CALCIUM 9.9 mg/dL (8.4-10.2); CARBON DIOXIDE 28 mmol/L (22-30); CHLORIDE 102 mmol/L (98-107); CHOLESTEROL 124.72 mg/dL (0-200); GLUCOSE 110 mg/dL (75-110); POTASSIUM 4.4 mmol/L (3.6-5.0); TOTAL PROTEIN 7.2 g/dL (6.3-8.2); TRIGLYCERIDES 362 mg/dL (<150)
[2019-10-18 09:12] LABS: DIRECT LDL 62 mg/dL (<100)
[2019-10-18 09:19] LABS: VLDL CHOLESTEROL 72.4 mg/dL (10-31)
== END ==
LOC: OD 07:05
PROVIDERS: ATTEND Physician Assistant
DX: I10 Essential (primary) hypertension (principal); E78.2 Mixed hyperlipidemia; Z79.899 Other long term (current) drug therapy
CPT/HCPCS: 36415; 80048; 80061; 80076

== ENCOUNTER → 2020-03-20 | Outpatient (CLI) | payer MEDICARE, OTHER ==
--- NOTE | 2020-03-20 09:29 | WOMENS IMAGING REPORT ---
EXAM DESCRIPTION: BONE DENSITY HIP/SPINE IMAGES COMPLETED DATE/TIME: 03/20/2020 9:13 am REASON FOR STUDY: M81.0 AGE-RELATED OSTEOPOROSIS W/O CURRENT PATHOLOGICAL FRACTURE Z12.31 ENCNTR SC REEN MAMMOGRAM FOR MALIGNANT NEOPLASM OF ESEQUIEL M81.0 AGE-RELATED OSTEOPOROSIS W/O CURRENT PATHOLOGICAL FRAC COMPARISON: 03/09/2016 TECHNIQUE: Dual-Energy X-ray Absorptiometry (DEXA) of the AP Spine and Hip. LIMITATIONS: None. FINDINGS: LUMBAR SPINE: The bone mineral density (BMD) measured from L1-L4 in the AP projection correlates with a T-score of 0.6, which is normal as defined by the World Health Organization. Positive 1.4% change since baselin e. HIP: The bone mineral density (BMD) measured in the left hip correlates with a T-score of -0.1, which is n ormal as defined by the World Health Organization. Positive 3.7% change since baseline. IMPRESSION: 1. LUMBAR SPINE: NORMAL. 2. HIP: NORMAL. COMMENT: The World Health Organization defines low BMD as follows: T-score: Normal: Greater than -1.0 Osteopenia: Between -1.0 and -2.5 Osteoporosis: Less than -2.5 without fractures Established osteoporosis: Less than -2.5 with fractures In general, you may wish to consider: Diagnosis Treatment Follow-up DEXA Normal BMD Prevention 2-3 years Osteopenia Prevention/Therapy 1-2 years Osteoporosis Therapy Yearly TECHNICAL DOCUMENTATION: JOB ID: [id number] 2010 [employer]- All Rights Reserved Reading location - IP/workstation name: [email or web address]
--- NOTE | 2020-03-23 12:50 | WOMENS IMAGING REPORT ---
EXAM DESCRIPTION: 3D SCREENING MAMMO BILAT IMAGES COMPLETED DATE/TIME: 03/23/2020 12:40 pm REASON FOR STUDY: Z12.31 ENCNTR SCREEN MAMMOGRAM FOR MALIGNANT NEOPLASM OF BREAST Z12.31 ENCNTR SCR EEN MAMMOGRAM FOR MALIGNANT NEOPLASM OF ESEQUIEL M81.0 AGE-RELATED OSTEOPOROSIS W/O CURRENT PATHOLOGICAL FRAC COMPARISON: Digital bilateral screening mammograms dated 03/16/2018, and 03/09/2016. EXAM PARAMETERS: Standard craniocaudal and mediolateral oblique views of each breast recorded using digital acquisition and breast tomosynthesis. Read with the assistance of CAD. .[facility] - [employer] Director Version 9.2 LIMITATIONS: None. FINDINGS: Findings present which are benign by mammographic criteria. No suspicious masses, calcific ations or architectural distortion. Pertinent benign findings: Stable focal asymmetries, calcifications and vascular calcifications in th e breast. Benign mammographic findings may include one or more of the following: Smooth masses, popcorn/rim/coa rse calcifications, asymmetries, post-procedure changes, and lesions with long-standing stability. IMPRESSION: BENIGN MAMMOGRAPHIC FINDINGS. BIRADS 2 BREAST DENSITY: b. There are scattered areas of fibroglandular density. BIRAD: ASSESSMENT: 2 BENIGN FINDING(S) RECOMMENDATION: 1. ROUTINE SCREENING COMMENT: The patient has been notified of the results by letter per MQSA requirements. Additional no tification policies are in place for contacting patient with suspicious or incomplete findings. Quality ID #[id number]: The [employer] recommends an annual screening mammogram for women aged 40 years or over. This facility utilizes a reminder system to ensure that all patients receive reminder letters, and/or direct phone calls for appointments. This includes reminders for routine scr eening mammograms, diagnostic mammograms, or other Breast Imaging Interventions when appropriate. Th is patient will be placed in the appropriate reminder system. TECHNICAL DOCUMENTATION: FINDING NUMBER: (1) ASSESSMENT: (1) JOB ID: [id number] 2010 [employer]- All Rights Reserved Reading location - IP/workstation name: [email or web address]
== END ==
LOC: WI 08:31
PROVIDERS: ATTEND Family Medicine
DX: Z12.31 Encounter for screening mammogram for malignant neoplasm of breast (principal); M81.0 Age-related osteoporosis without current pathological fracture
CPT/HCPCS: 77063; 77067; 77080

== ENCOUNTER → 2020-06-10 | Outpatient (CLI) | payer MEDICARE, OTHER ==
[2020-06-10 08:43] LABS: ALBUMIN 4.3 g/dL (3.5-5.0); ALKALINE PHOSPHATASE 60 U/L (38-126); ANION GAP 7 (5-19); ASPARTATE AMINO TRANSFERASE 31 U/L (14-36); BILIRUBIN,DIRECT 0.2 mg/dL (0.0-0.4); BILIRUBIN,TOTAL 0.4 mg/dL (0.2-1.3); BLOOD UREA NITROGEN 16 mg/dL (7-20); CALCIUM 9.6 mg/dL (8.4-10.2); CARBON DIOXIDE 28 mmol/L (22-30); CHLORIDE 103 mmol/L (98-107); CHOLESTEROL 113.84 mg/dL (0-200); GLUCOSE 94 mg/dL (75-110); POTASSIUM 4.4 mmol/L (3.6-5.0); TOTAL PROTEIN 7.2 g/dL (6.3-8.2); TRIGLYCERIDES 170 mg/dL (<150)
[2020-06-10 08:55] LABS: DIRECT LDL 50 mg/dL (<100)
[2020-06-10 13:32] LABS: HEMATOCRIT 36.4 % (36.0-47.0); HEMOGLOBIN 12.7 g/dL (12.0-15.5); MEAN CORPUSCULAR HEMOGLOBIN 32.4 pg (27.0-33.4); MEAN CORPUSCULAR HGB CONC 34.8 g/dL (32.0-36.0); MEAN CORPUSCULAR VOLUME 93 fl (80-97); PLATELET COUNT 319 10^3/uL (150-450); RED BLOOD COUNT 3.91 10^6/uL (3.72-5.28); RED CELL DISTRIBUTION WIDTH 13.4 % (11.5-14.0); WHITE BLOOD COUNT 10.2 10^3/uL (4.0-10.5)
== END ==
LOC: OD 07:25
PROVIDERS: ATTEND Physician Assistant
DX: E78.2 Mixed hyperlipidemia (principal); I10 Essential (primary) hypertension; R53.83 Other fatigue; Z79.899 Other long term (current) drug therapy
CPT/HCPCS: 36415; 80048; 80061; 80076; 84443; 85027